=== PATIENT | male | born 1940 | race Caucasian/White ===

== ENCOUNTER 2022-01-07 09:39 | Emergency (ER) | payer OTHER ==
[~2022-01-07] VITALS: Ht 182.9 cm; Wt 81.6 kg
[2022-01-07 10:38] LABS: Albumin 3.8 g/dL (3.4-5.0); BUN/Creatinine Ratio 16.5; Calcium 9.2 mg/dL (8.5-10.1); Magnesium 2.5 mg/dL (1.6-2.6)
[2022-01-07 10:40] LABS: Bilirubin, Total 1.7 mg/dL (0.2-1.0); Total Protein 7.7 g/dL (6.4-8.2)
[2022-01-07 12:17] LABS: Hemoglobin 11.2 g/dL (13.5-17.5)
[2022-01-07 12:21] LABS: Hematocrit 35.2 % (41.0-53.0); Mean Corpuscular Hemoglobin 32.3 pg (28.0-32.0); Mean Corpuscular Hgb Conc. 31.8 g/dL (32.0-36.0); Mean Corpuscular Volume 101.4 fL (80.0-100.0); Red Blood Cells 3.47 10^6/uL (4.5-5.90); White Blood Cell 6.5 10^3/uL (4.4-10.8)
[2022-01-07 12:28] LABS: Red Cell Distribution Width 26.3 % (11.8-14.3)
[2022-01-07 12:29] LABS: Basophils % (manual) 0 (0.0-2.0); Blast Cells 0; Metamyelocytes % 0; Myelocytes % 0; Promyelocytes % 0; Reactive Lymphocytes 0
[2022-01-07 14:14] LABS: Band Neutrophils % (manual) 9; Eosinophils % (manual) 33 (0-7); Lymphocytes % (manual) 12 (10.0-50.0); Monocytes % (manual) 4 (0-12)
[2022-01-07 15:44] LABS: Urine Bacteria NONE SEEN /hpf (None Seen); Urine Blood Negative /uL (Negative); Urine Hyaline Cast FEW /lpf (0 - 2); Urine Mucus FEW (None Seen); Urine Specific Gravity 1.025 (1.001-1.035); Urine WBC 13 /hpf (0 - 3)
[2022-01-07] MEDS ORDERED: SODIUM CHLORIDE 0.9% 1,000 ML IV ONE (15:45)
[2022-01-07 18:46] VITALS: BP 120/53
== END 2022-01-07 19:14 | disposition admitted as inpatient to this hospital (09) ==
LOC: ER 09:39
DX: K56.609 Unspecified intestinal obstruction, unspecified as to partial versus complete obstruction (principal); R73.9 Hyperglycemia, unspecified; Z20.822 Contact with and (suspected) exposure to COVID-19
CPT/HCPCS: 36415; 71045; 74176; 80053; 81001; 83735; 84484; 85007; 85027; 87426; 93005; 96360; 96361; 99285; J7030